=== PATIENT | male | born 1980 | race Caucasian/White ===

== ENCOUNTER 2018-05-25 14:02 | Inpatient (IN) | payer OTHER ==
[~2018-05-25] VITALS: Ht 185.4 cm; Wt 106.6 kg
[2018-05-25] MEDS ORDERED: PLEASE ENTER ALLERGIES MC SCH (14:30)
[2018-05-25] MEDS ORDERED: HYDROmorphone 1 MG/ML, 1ML IV ONE ×2 (14:30→15:00)
[2018-05-25] MEDS ORDERED: HYDROmorphone 2 MG/ML, 1ML ONE ×2 (14:35→17:57)
[2018-05-25 14:44] LABS: MEAN CORPUSCULAR HEMOGLOBIN 30.5 pg (27.5-34.5); MEAN CORPUSCULAR HGB CONC 34.4 g/dL (33.2-36.2); MEAN CORPUSCULAR VOLUME 88.8 fL (81-97); MEAN PLATELET VOLUME 9.1 fL (7.4-10.4); PLATELET COUNT 310 x10^3/uL (130-400); RED BLOOD COUNT 4.96 x10^6/uL (4.38-5.82); RED CELL DISTRIBUTION WIDTH 14.3 % (9.4-14.8)
[2018-05-25 14:56] LABS: ANION GAP 9 mmol/L (5-15); CALCIUM 8.7 mg/dL (8.5-10.1); CHLORIDE 113 mmol/L (98-107); CREATININE 0.98 mg/dL (0.7-1.3)
[2018-05-25 15:23] LABS: BASOPHILS # (AUTO) 0.03 x10^3/uL (0-0.1); BASOPHILS % (AUTO) 0 % (0-1); EOSINOPHILS % (AUTO) 0 % (1-7); LYMPHOCYTES % (AUTO) 12 % (22-44); MD SCAN; MONOCYTES % (AUTO) 4 % (2-9); NEUTROPHILS # (AUTO) 16.21 x10^3/uL (1.8-6.8); NEUTROPHILS % (AUTO) 84 % (42-75)
[2018-05-25] MEDS ORDERED: VENL75CA PO (15:23)
[2018-05-25] MEDS ORDERED: OMEP-110 PO (15:23)
[2018-05-25] MEDS ORDERED: MIDAZOLAM 1 MG/ML, 2ML ONE (16:22)
[2018-05-25] MEDS ORDERED: FENTANYL PF 250 MCG/5ML ONE (16:22)
[2018-05-25] MEDS ORDERED: ROCURONIUM 10MG/ML,5ML ONE (16:23)
[2018-05-25] MEDS ORDERED: PROPOFOL 10 MG/ML, 20ML ONE ×3 (16:24→16:26)
[2018-05-25] MEDS ORDERED: NEOSTIGMINE 1 MG/ML, 10ML ONE (16:31)
[2018-05-25] MEDS ORDERED: GLYCOPYRROLATE 0.2MG/1ML, 5ML ONE (16:31)
[2018-05-25] MEDS ORDERED: ONDANSETRON 2MG/ML, 2ML ONE (16:31)
[2018-05-25] MEDS ORDERED: KETOROLAC 30 MG/1 ML ONE (16:31)
[2018-05-25] MEDS ORDERED: DEXAMETHASONE 4 MG/ML, 1ML ONE (16:31)
[2018-05-25] MEDS ORDERED: hydrALAzine 20 MG/ML, 1ML IV PRN (17:00)
[2018-05-25] MEDS ORDERED: FENTANYL PF 100 MCG/2ML IV PRN (17:00)
[2018-05-25] MEDS ORDERED: LABETALOL 5MG/ML, 20ML IV PRN (17:00)
[2018-05-25] MEDS ORDERED: LORazepam 2 MG/ML, 1ML IVPush PRN (17:00)
[2018-05-25] MEDS ORDERED: ACETAMINOPHEN 325 MG TABLET PO PRN (17:00)
[2018-05-25] MEDS ORDERED: PROMETHAZINE 25 MG/ML, 1ML IV PRN (17:00)
[2018-05-25] MEDS ORDERED: OXYcodone 5 MG/5 ML ORAL.SOL UDC PO PRN (17:00)
[2018-05-25] MEDS ORDERED: MEPERIDINE/PF 25MG/0.5ML IVPush PRN (17:00)
[2018-05-25] MEDS ORDERED: HALOPERIDOL 5 MG/ML IV PRN (17:00)
[2018-05-25] MEDS ORDERED: D5%-0.45% NACL 1,000 ML IV SCH (17:38)
[2018-05-25] MEDS ORDERED: FENTANYL PF 100 MCG/2ML ONE (17:40)
[2018-05-25] MEDS ORDERED: OXYcodone 5 MG/5 ML ORAL.SOL UDC ONE (17:57)
[2018-05-25] MEDS ORDERED: ONDANSETRON 2MG/ML, 2ML IVPush PRN (18:00)
[2018-05-25] MEDS ORDERED: POLYETHYLENE GLYCOL 17 GM PACKET PO PRN (18:00)
[2018-05-25] MEDS ORDERED: ONDANSETRON ODT 4 MG PO PRN (18:00)
[2018-05-25] MEDS ORDERED: LABETALOL 5MG/ML, 20ML IVPush PRN (18:00)
[2018-05-25] MEDS: HYDROmorphone 1 MG/ML, 1ML IV PRN ×4 (18:04→18:46)
[2018-05-25] MEDS ORDERED: MEPERIDINE/PF 50 MG/ML ONE (18:05)
[2018-05-25] MEDS ORDERED: VENLAFAXINE 75 MG CAP ER PO SCH (18:30)
[2018-05-25] MEDS ORDERED: HYDROcodone/APAP 10/325 MG TABLET PO PRN (19:30)
[2018-05-25] MEDS ORDERED: LORazepam 2 MG/ML, 1ML IV PRN (19:30)
[2018-05-25] MEDS: SODIUM CHLORIDE FLUSH 10ML SYR IVF SCH (20:24)
[2018-05-25] MEDS ORDERED: ZOLPIDEM 5MG TABLET PO PRN (21:00)
[2018-05-25] MEDS: OXYcodone 5 MG/5 ML ORAL.SOL UDC PO PRN (21:57)
[2018-05-25] MEDS: POTASSIUM CHLORIDE 20 MEQ in D5%-0.45% NACL 1,000 ML IV SCH (21:57)
[2018-05-25] MEDS ORDERED: CEFAZOLIN 2,000 MG in SODIUM CHLORIDE 0.9% 50 ML IVPB SCH (22:30)
[2018-05-25] MEDS ORDERED: CEFAZOLIN PMX 2GM/50ML 50 ML IVPB SCH (22:30)
[2018-05-25 22:46] LABS: MICROSCOPIC NOT IND
[2018-05-25] MEDS: CEFAZOLIN PMX 2GM/50ML 50 ML IVPB SCH (22:53)
[2018-05-26 00:06] VITALS: BP 134/78
[2018-05-26] MEDS: OXYcodone 5 MG/5 ML ORAL.SOL UDC PO PRN ×6 (01:53→23:00)
[2018-05-26 04:07] VITALS: BP 132/65
[2018-05-26 05:24] LABS: CHLORIDE 108 mmol/L (98-107)
[2018-05-26 05:35] LABS: ALANINE AMINOTRANSFERASE 28 U/L (12-78); ALBUMIN 3.4 g/dL (3.4-5.0); ALKALINE PHOSPHATASE 95 U/L (45-117); ANION GAP 10 mmol/L (5-15); BILIRUBIN,TOTAL 0.6 mg/dL (0.2-1.0); CALCIUM 8.5 mg/dL (8.5-10.1); CREATININE 0.92 mg/dL (0.7-1.3); TOTAL PROTEIN 6.8 g/dL (6.4-8.2)
[2018-05-26 06:00] LABS: BASOPHILS # (AUTO) 0.01 x10^3/uL (0-0.1); BASOPHILS % (AUTO) 0 % (0-1); EOSINOPHILS % (AUTO) 0 % (1-7); LYMPHOCYTES # (AUTO) 1.36 x10^3/uL (1-3.4); LYMPHOCYTES % (AUTO) 10 % (22-44); MD NO; MEAN CORPUSCULAR HEMOGLOBIN 30.9 pg (27.5-34.5); MEAN CORPUSCULAR HGB CONC 34.6 g/dL (33.2-36.2); MEAN CORPUSCULAR VOLUME 89.1 fL (81-97); MEAN PLATELET VOLUME 9.8 fL (7.4-10.4); MONOCYTES # (AUTO) 0.62 x10^3/uL (0.2-0.8); MONOCYTES % (AUTO) 5 % (2-9); NEUTROPHILS # (AUTO) 11.26 x10^3/uL (1.8-6.8); NEUTROPHILS % (AUTO) 85 % (42-75); PLATELET COUNT 288 x10^3/uL (130-400); RED BLOOD COUNT 4.57 x10^6/uL (4.38-5.82)
[2018-05-26] MEDS ORDERED: ENOXAPARIN 30 MG/0.3 ML SQ ONE (06:00)
[2018-05-26] MEDS ORDERED: HYDROmorphone 2 MG/ML, 1ML ONE ×2 (06:39→17:08)
[2018-05-26] MEDS: HYDROmorphone 1 MG/ML, 1ML IV PRN ×2 (06:42→17:08)
[2018-05-26] MEDS: CEFAZOLIN PMX 2GM/50ML 50 ML IVPB SCH ×2 (06:43→17:08)
[2018-05-26 07:07] VITALS: BP 128/75
[2018-05-26] MEDS: LORazepam 1MG TABLET PO PRN ×3 (08:27→17:05)
[2018-05-26] MEDS: OMEPRAZOLE 20 MG CAPSULE.DR PO SCH (08:27)
[2018-05-26] MEDS: SENNA/DOCUSATE TABLET PO SCH (08:27)
[2018-05-26] MEDS: SODIUM CHLORIDE FLUSH 10ML SYR IVF SCH ×2 (09:00→23:01)
[2018-05-26] MEDS: ACETAMINOPHEN 325 MG TABLET PO PRN ×4 (09:49→23:12)
[2018-05-26] MEDS: VENLAFAXINE 75 MG CAP ER PO SCH (09:59)
[2018-05-26] MEDS: POTASSIUM CHLORIDE 20 MEQ in D5%-0.45% NACL 1,000 ML IV SCH ×2 (10:00→23:06)
[2018-05-26 12:20] VITALS: BP 141/78
[2018-05-26 20:10] VITALS: BP 112/60
[2018-05-27] MEDS: ACETAMINOPHEN 325 MG TABLET PO PRN ×4 (03:05→20:19)
[2018-05-27] MEDS: LORazepam 1MG TABLET PO PRN ×4 (03:05→22:13)
[2018-05-27] MEDS: OXYcodone 5 MG/5 ML ORAL.SOL UDC PO PRN ×4 (03:07→20:19)
[2018-05-27 03:25] VITALS: BP 124/81
[2018-05-27 05:52] LABS: BASOPHILS # (AUTO) 0.03 x10^3/uL (0-0.1); BASOPHILS % (AUTO) 0 % (0-1); EOSINOPHILS % (AUTO) 0 % (1-7); LYMPHOCYTES # (AUTO) 4.66 x10^3/uL (1-3.4); LYMPHOCYTES % (AUTO) 32 % (22-44); MD NO; MEAN CORPUSCULAR HEMOGLOBIN 30.4 pg (27.5-34.5); MEAN CORPUSCULAR HGB CONC 33.8 g/dL (33.2-36.2); MEAN CORPUSCULAR VOLUME 90.1 fL (81-97); MEAN PLATELET VOLUME 9.6 fL (7.4-10.4); MONOCYTES # (AUTO) 1.27 x10^3/uL (0.2-0.8); MONOCYTES % (AUTO) 9 % (2-9); NEUTROPHILS # (AUTO) 8.67 x10^3/uL (1.8-6.8); NEUTROPHILS % (AUTO) 59 % (42-75); PLATELET COUNT 252 x10^3/uL (130-400); RED BLOOD COUNT 4.13 x10^6/uL (4.38-5.82); RED CELL DISTRIBUTION WIDTH 14.1 % (9.4-14.8)
[2018-05-27 05:58] LABS: ALBUMIN 3.1 g/dL (3.4-5.0); ANION GAP 6 mmol/L (5-15); CALCIUM 8.1 mg/dL (8.5-10.1); CHLORIDE 109 mmol/L (98-107); CREATININE 0.91 mg/dL (0.7-1.3)
[2018-05-27] MEDS ORDERED: HYDROmorphone 2 MG/ML, 1ML ONE ×4 (06:39→22:04)
[2018-05-27] MEDS: HYDROmorphone 1 MG/ML, 1ML IV PRN ×4 (06:41→22:14)
[2018-05-27 06:54] VITALS: BP 145/89
[2018-05-27] MEDS ORDERED: METHOCARBAMOL 750 MG in DEXTROSE 5% 100 ML IV PRN (07:30)
[2018-05-27] MEDS: SENNA/DOCUSATE TABLET PO SCH (08:57)
[2018-05-27] MEDS: OMEPRAZOLE 20 MG CAPSULE.DR PO SCH (08:57)
[2018-05-27] MEDS: VENLAFAXINE 75 MG CAP ER PO SCH (08:57)
[2018-05-27] MEDS: ENOXAPARIN 40 MG/0.4 ML SQ SCH (08:57)
[2018-05-27] MEDS: SODIUM CHLORIDE FLUSH 10ML SYR IVF SCH ×2 (08:58→20:20)
[2018-05-27] MEDS ORDERED: VENLAFAXINE 75 MG CAP ER PO SCH (09:00)
[2018-05-27] MEDS: POTASSIUM CHLORIDE 20 MEQ in D5%-0.45% NACL 1,000 ML IV SCH (11:52)
[2018-05-27 12:53] VITALS: BP 145/85
[2018-05-27 20:44] VITALS: BP 148/81
[2018-05-28] MEDS: OXYcodone 5 MG/5 ML ORAL.SOL UDC PO PRN ×6 (00:43→21:58)
[2018-05-28] MEDS: POTASSIUM CHLORIDE 20 MEQ in D5%-0.45% NACL 1,000 ML IV SCH (00:43)
[2018-05-28] MEDS: ACETAMINOPHEN 325 MG TABLET PO PRN (00:45)
[2018-05-28] MEDS ORDERED: HYDROmorphone 2 MG/ML, 1ML ONE ×2 (01:18→05:40)
[2018-05-28] MEDS: HYDROmorphone 1 MG/ML, 1ML IV PRN ×2 (01:21→05:43)
[2018-05-28 02:01] VITALS: BP 139/87
[2018-05-28] MEDS: LORazepam 1MG TABLET PO PRN ×2 (02:26→11:23)
[2018-05-28 05:15] LABS: BASOPHILS # (AUTO) 0.02 x10^3/uL (0-0.1); BASOPHILS % (AUTO) 0 % (0-1); EOSINOPHILS % (AUTO) 0 % (1-7); LYMPHOCYTES # (AUTO) 3.72 x10^3/uL (1-3.4); LYMPHOCYTES % (AUTO) 32 % (22-44); MD NO; MEAN CORPUSCULAR HEMOGLOBIN 30.2 pg (27.5-34.5); MEAN CORPUSCULAR HGB CONC 33.8 g/dL (33.2-36.2); MEAN CORPUSCULAR VOLUME 89.5 fL (81-97); MEAN PLATELET VOLUME 9.4 fL (7.4-10.4); MONOCYTES # (AUTO) 0.98 x10^3/uL (0.2-0.8); MONOCYTES % (AUTO) 8 % (2-9); NEUTROPHILS # (AUTO) 6.92 x10^3/uL (1.8-6.8); NEUTROPHILS % (AUTO) 59 % (42-75); PLATELET COUNT 281 x10^3/uL (130-400); RED BLOOD COUNT 4.45 x10^6/uL (4.38-5.82); RED CELL DISTRIBUTION WIDTH 14.1 % (9.4-14.8)
[2018-05-28 05:26] LABS: ALBUMIN 3.3 g/dL (3.4-5.0); ANION GAP 7 mmol/L (5-15); CALCIUM 8.6 mg/dL (8.5-10.1); CHLORIDE 109 mmol/L (98-107)
[2018-05-28 05:30] LABS: CREATININE 0.78 mg/dL (0.7-1.3)
[2018-05-28 07:19] VITALS: BP 143/89
[2018-05-28] MEDS ORDERED: METHOCARBAMOL 750 MG TABLET PO PRN (07:30)
[2018-05-28] MEDS: SODIUM CHLORIDE FLUSH 10ML SYR IVF SCH ×2 (08:55→19:53)
[2018-05-28] MEDS: ENOXAPARIN 40 MG/0.4 ML SQ SCH (08:55)
[2018-05-28] MEDS: SENNA/DOCUSATE TABLET PO SCH (08:55)
[2018-05-28] MEDS: VENLAFAXINE 75 MG CAP ER PO SCH (08:55)
[2018-05-28] MEDS: OMEPRAZOLE 20 MG CAPSULE.DR PO SCH (08:55)
[2018-05-28] MEDS: HYDROmorphone 2 MG/ML, 1ML IV PRN ×3 (10:08→19:54)
[2018-05-28 14:13] VITALS: BP 148/99
[2018-05-28 20:00] VITALS: BP 137/89
[2018-05-29] MEDS: OXYcodone 5 MG/5 ML ORAL.SOL UDC PO PRN ×5 (02:23→19:57)
[2018-05-29 03:44] VITALS: BP 132/84
[2018-05-29 06:18] LABS: ALBUMIN 3.5 g/dL (3.4-5.0); ANION GAP 8 mmol/L (5-15); CALCIUM 9.4 mg/dL (8.5-10.1); CHLORIDE 103 mmol/L (98-107)
[2018-05-29 06:21] LABS: BASOPHILS # (AUTO) 0.02 x10^3/uL (0-0.1); BASOPHILS % (AUTO) 0 % (0-1); EOSINOPHILS % (AUTO) 0 % (1-7); LYMPHOCYTES # (AUTO) 3.58 x10^3/uL (1-3.4); LYMPHOCYTES % (AUTO) 25 % (22-44); MD NO; MEAN CORPUSCULAR HEMOGLOBIN 30.6 pg (27.5-34.5); MEAN CORPUSCULAR HGB CONC 34.5 g/dL (33.2-36.2); MEAN CORPUSCULAR VOLUME 88.7 fL (81-97); MEAN PLATELET VOLUME 9.4 fL (7.4-10.4); MONOCYTES # (AUTO) 1.07 x10^3/uL (0.2-0.8); MONOCYTES % (AUTO) 8 % (2-9); NEUTROPHILS # (AUTO) 9.41 x10^3/uL (1.8-6.8); NEUTROPHILS % (AUTO) 67 % (42-75); PLATELET COUNT 312 x10^3/uL (130-400); RED BLOOD COUNT 4.79 x10^6/uL (4.38-5.82); RED CELL DISTRIBUTION WIDTH 13.7 % (9.4-14.8)
[2018-05-29] MEDS: OMEPRAZOLE 20 MG CAPSULE.DR PO SCH (07:31)
[2018-05-29] MEDS: SENNA/DOCUSATE TABLET PO SCH (07:32)
[2018-05-29] MEDS: SODIUM CHLORIDE FLUSH 10ML SYR IVF SCH ×2 (07:32→19:57)
[2018-05-29] MEDS: ENOXAPARIN 40 MG/0.4 ML SQ SCH (07:32)
[2018-05-29] MEDS: VENLAFAXINE 75 MG CAP ER PO SCH (07:32)
[2018-05-29 07:53] VITALS: BP 128/85
[2018-05-29 12:56] VITALS: BP 136/94
[2018-05-29 19:07] VITALS: BP 128/80
[2018-05-30] MEDS: OXYcodone 5 MG/5 ML ORAL.SOL UDC PO PRN ×3 (01:44→12:09)
[2018-05-30 02:11] VITALS: BP 125/80
[2018-05-30] MEDS: ACETAMINOPHEN 325 MG TABLET PO PRN (02:48)
[2018-05-30 07:04] VITALS: BP 126/87
[2018-05-30] MEDS: OMEPRAZOLE 20 MG CAPSULE.DR PO SCH (08:39)
[2018-05-30] MEDS: VENLAFAXINE 75 MG CAP ER PO SCH (08:39)
[2018-05-30] MEDS: SENNA/DOCUSATE TABLET PO SCH (08:40)
[2018-05-30] MEDS: ENOXAPARIN 40 MG/0.4 ML SQ SCH (08:40)
[2018-05-30] MEDS: SODIUM CHLORIDE FLUSH 10ML SYR IVF SCH (08:46)
[2018-05-30] MEDS ORDERED: ENOX40SY4 SQ (10:34)
[2018-05-30] MEDS ORDERED: METH750T87 PO (10:34)
[2018-05-30] MEDS ORDERED: IBUP200T49 PO (10:56)
[2018-05-30] MEDS ORDERED: OXYC1TAB8 PO (10:57)
[2018-05-30 13:11] VITALS: BP 105/66
== END 2018-05-30 14:40 | disposition home health service (06) | DRG 493 ==
LOC: ED 14:56 → EDIP 15:30 → 4NOR 19:25 → DCLOUNGE 05-30 14:30
PROVIDERS: ADMIT Orthopaedic Surgery; ATTEND Orthopaedic Surgery
PROC: 0QSH35Z Reposition Left Tibia with External Fixation Device, Percutaneous Approach (ICD-10-PCS; principal; 2018-05-25 16:00)
DX: S82.392A Other fracture of lower end of left tibia, initial encounter for closed fracture (principal); L03.114 Cellulitis of left upper limb; S82.452A Displaced comminuted fracture of shaft of left fibula, initial encounter for closed fracture; F32.9 Major depressive disorder, single episode, unspecified; K21.9 Gastro-esophageal reflux disease without esophagitis; S82.832A Other fracture of upper and lower end of left fibula, initial encounter for closed fracture; W11.XXXA Fall on and from ladder, initial encounter; Y92.038 Other place in apartment as the place of occurrence of the external cause; Y93.89 Activity, other specified; Y99.8 Other external cause status
CPT/HCPCS: 36415; 73600; 76000; 99291; J3490; 71045; 80048; 80053; 81003; 82040; 83735; 84100; 85025; 96374; 96376; C1713; G0378; J0690; J1100; J1170; J1650; J1885; J2175; J2250; J2405; J2704; J2710; J3010; J3480; J2800